=== PATIENT | female | born 1975 | race African-American/Black ===

== ENCOUNTER 2021-01-18 22:51 | Emergency (ER) | payer OTHER ==
[2021-01-18 22:55] VITALS: TEMP 98.5; BMI 28.2
[2021-01-18] MEDS ORDERED: ASPIRIN 81 MG CHEWABLE TABLETS PO ONE (23:43)
[2021-01-18] MEDS ORDERED: ACETAMINOPHEN 325 MG TABLET (FP) PO ONE (23:51)
[2021-01-18] MEDS ORDERED: ACETAMINOPHEN 325 MG TABLET (FP) ONE (23:54)
[2021-01-18] MEDS ORDERED: ASPIRIN 81 MG CHEWABLE TABLETS ONE (23:55)
[2021-01-18] MEDS ORDERED: NITROGLYCERIN SUBLINGUAL 1/150 0.4 MG TAB ONE (23:55)
[2021-01-18] MEDS: NITROGLYCERIN SUBLINGUAL 1/150 0.4 MG TAB SL PRN (23:58)
[2021-01-19] LABS: BASO % 1.3 % (0-2.0); EOS % 3.2 % (0-4.5); HEMATOCRIT 37.5 % (32.4-45.2); LYMPH % 34.8 % (8-40); MCH 30.5 pg (25.7-33.7); MCHC 34.6 g/dl (32.0-36.0); MEAN CELL VOLUME 88.1 fl (80-96); MEAN PLT VOLUME 8.5 fl (7.5-11.1); MONO % 9.4 % (3.8-10.2); NEUT % 51.3 % (42.8-82.8); PLATELET COUNT 334 K/MM3 (134-434); RBC 4.26 M/mm3 (3.60-5.2); WHITE BLOOD COUNT 4.9 K/mm3 (4.0-10.0)
[2021-01-19 00:06] LABS: INR 0.95 (0.83-1.09); PROTHROMBIN TIME (PATIENT) 11.5 SEC (9.7-13.0)
[2021-01-19] MEDS: NITROGLYCERIN SUBLINGUAL 1/150 0.4 MG TAB SL PRN (00:07)
[2021-01-19 00:09] LABS: ACTIVATED PTT 34.6 SECONDS (25.2-36.5)
[2021-01-19 00:18] LABS: CHLORIDE 105 mmol/L (98-107); SODIUM 140 mmol/L (136-145)
[2021-01-19 00:20] LABS: ANION GAP 8 MMOL/L (8-16); BLOOD UREA NITROGEN 15.1 mg/dL (7-18); CO2 27 mmol/L (21-32); GLUCOSE,RANDOM 102 mg/dL (74-106)
[2021-01-19 00:21] LABS: ALBUMIN 3.8 g/dl (3.4-5.0)
[2021-01-19 00:23] LABS: CREATININE 0.8 mg/dL (0.55-1.3)
[2021-01-19 00:24] LABS: SGOT/AST 16 U/L (15-37); SGPT/ALT 14 U/L (13-61)
[2021-01-19 00:25] LABS: BILIRUBIN,TOTAL 0.3 mg/dL (0.2-1); TOT PROT 7.6 g/dl (6.4-8.2)
[2021-01-19 00:26] LABS: ALK PHOS 78 U/L (45-117)
[2021-01-19] MEDS ORDERED: NITROGLYCERIN SUBLINGUAL 1/150 0.4 MG TAB ONE (00:44)
[2021-01-19 02:14] LABS: URINE APPEARANCE CLEAR; URINE BILIRUBIN NEGATIVE (NEGATIVE); URINE COLOR YELLOW; URINE GLUCOSE (UA) NEGATIVE (NEGATIVE); URINE KETONE NEGATIVE (NEGATIVE); URINE LEUK ESTERASE NEGATIVE (NEGATIVE); URINE NITRITE NEGATIVE (NEGATIVE); URINE PROTEIN NEGATIVE (NEGATIVE); URINE UROBILINOGEN 0.2 mg/dL (0.2-1.0)
[2021-01-19 04:56] VITALS: BP 148/97; PULSE 66
== END 2021-01-19 04:56 | disposition home or self-care (01) ==
LOC: JER 22:51
DX: R07.9 Chest pain, unspecified (principal)
CPT/HCPCS: 36415; 71045-TC-FY; 71275-TC; 74174-TC; 80053; 81003; 84484; 85025; 85610; 85730; 87086; 93005; 93010; 99285-25

== ENCOUNTER 2022-08-23 06:12 | Day surgery (SDC) | payer OTHER ==
[2022-08-16 15:42] VITALS: BMI 28.4
[2022-08-23] MEDS ORDERED: BUPIVACAINE HCL/PF 0.25% (2.5MG/ML) 10 ML VIAL ONE (07:15)
[2022-08-23] MEDS ORDERED: BUPIVACAINE HCL/EPINEPHRINE/PF 30 ML VIAL IJ ONE (07:15)
[2022-08-23] MEDS ORDERED: SODIUM CHLORIDE 0.9% P/F 10 ML VIAL IJ ONE (07:27)
[2022-08-23] MEDS ORDERED: MIDAZOLAM HCL 2 MG/2 ML SINGLE DOSE VIAL ONE (07:27)
[2022-08-23] MEDS ORDERED: BUPIVACAINE HCL/PF 0.5% (5MG/ML) 10 ML VIAL ONE (07:27)
[2022-08-23] MEDS ORDERED: BUPIVACAINE LIPOSOME/PF (EXPAREL) 266 MG/20 ML VIAL ONE (07:27)
[2022-08-23] MEDS ORDERED: SUCCINYLCHOLINE CHLORIDE 200 MG/10 ML SYRINGE ONE (07:42)
[2022-08-23] MEDS ORDERED: PROPOFOL 40 ML ONE (07:42)
[2022-08-23] MEDS ORDERED: KETOROLAC TROMETHAMINE 30 MG/1 ML VIAL ONE (07:50)
[2022-08-23] MEDS ORDERED: DEXAMETHASONE SOD PHOSPHATE 4 MG/1 ML VIAL ONE (07:50)
[2022-08-23] MEDS ORDERED: ONDANSETRON 4 MG/2 ML VIAL ONE (07:50)
[2022-08-23] MEDS ORDERED: ceFAZolin SODIUM 1 GM VIAL ONE (07:50)
[2022-08-23] MEDS ORDERED: HYDROmorphone HCL/PF 1 MG/ML VIAL ONE ×2 (07:53→09:52)
[2022-08-23] MEDS ORDERED: PROPOFOL 20 ML ONE (10:14)
[2022-08-23] MEDS ORDERED: oxyCODONE HCL 5 MG TABLET PO PRN ×2 (10:50)
[2022-08-23] MEDS ORDERED: ACETAMINOPHEN 325 MG TABLET (FP) PO PRN (10:50)
[2022-08-23] MEDS ORDERED: PROMETHAZINE HCL 25 MG/1 ML VIAL IVPUSH PRN (10:50)
[2022-08-23] MEDS ORDERED: ONDANSETRON 4 MG/2 ML VIAL IVPUSH PRN (10:50)
[2022-08-23 12:12] VITALS: RESP 18; TEMP 97.8
[2022-08-23 12:45] VITALS: BP 110/77; PULSE 77
== END 2022-08-23 15:30 | disposition home or self-care (01) ==
LOC: FASU 06:12
PROVIDERS: ATTEND Orthopaedic Surgery
PROC: 0SBD4ZZ Excision of Left Knee Joint, Percutaneous Endoscopic Approach (ICD-10-PCS; 2022-08-23)
PROC: 0MQP0ZZ Repair Left Knee Bursa and Ligament, Open Approach (ICD-10-PCS; principal; 2022-08-23 08:17)
PROC: 0MNP4ZZ Release Left Knee Bursa and Ligament, Percutaneous Endoscopic Approach (ICD-10-PCS; 2022-08-23 08:17)
DX: M22.12 Recurrent subluxation of patella, left knee (principal); S83.012D Lateral subluxation of left patella, subsequent encounter; X58.XXXD Exposure to other specified factors, subsequent encounter; M65.9 Synovitis and tenosynovitis, unspecified; M94.20 Chondromalacia, unspecified site
CPT/HCPCS: 27427; 29873; 29876; C1713; 73560-TC-LT-FY; 94760